=== PATIENT | female | born 1960 | race Caucasian/White ===

== ENCOUNTER → 2017-12-21 | Outpatient (CLI) | payer MEDICARE, BC ==
--- NOTE | 2017-12-21 09:51 | MR ---
EXAMINATION TYPE: MR lumbar spine wo/w con DATE OF EXAM: 12/21/2017 COMPARISON: MR lumbar spine 01/10/2010 HISTORY: Lumbar radiculopathy TECHNIQUE: Multiplanar, multisequence images of the lumbar spine were acquired utilizing 9.5 mL intravenous Gada vist gadolinium contrast. L1-L2: Normal disc appearance without desiccation. No herniation, protrusion or disc bulging. No ca nal stenosis is present. Foramina are patent bilaterally. L2-L3: Normal disc appearance without desiccation. No herniation, protrusion or disc bulging. No ca nal stenosis is present. Foramina are patent bilaterally. L3-L4: Small posterior broad-based disc bulge may contact the anterior thecal sac as on prior exam. N o central stenosis or foraminal encroachment. Some bilateral facet arthropathy encroaches on the late ral recesses. L4-L5: Left posterior paracentral extension of endplate disc complex, focal left paracentral mass eff ect on the thecal sac, possible mass effect on the central left L5 nerve root again noted. This enhan pineda following contrast administration compatible with some granulation tissue. No definite foraminal encroachment or central stenosis. There is some facet arthropathy similar to prior exam encroaches so mewhat greater on the right lateral recess. Laminectomy change present on the left at this level. L5-S1: Small area of increased signal at the posterior aspect of the disc may represent a small annul ar tear as on prior exam. No significant central stenosis or foraminal encroachment. Lumbar segments are intact. No paraspinal masses are identified. Conus medullaris has a normal appe arance. Findings are similar to prior exam. Lumbar vertebral bodies show preserved height and alignme nt. Endplate discogenic marrow signal change is present especially at L4-5 with associated vacuum phe nomenon, loss of disc height and signal. Small cortical cyst is associated with the posterior right k idney as on prior exam. IMPRESSION: Degenerative disc disease, granulation tissue causing some mass effect in similar distribution to pre vious lumbar MRI disc herniation at L4-5. Postop changes, multilevel facet arthropathy. Additional fi ndings above.
== END | disposition home or self-care (01) ==
LOC: RADMRIMAIN 08:38
PROVIDERS: ATTEND Physical Medicine & Rehabilitation
DX: M51.16 Intervertebral disc disorders with radiculopathy, lumbar region (principal); M46.96 Unspecified inflammatory spondylopathy, lumbar region; Z98.890 Other specified postprocedural states
CPT/HCPCS: 72158; A9581